=== PATIENT | female | born 2000 | race Caucasian/White ===

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

== ENCOUNTER → 2025-04-06 | Outpatient (CLI) | payer OTHER ==
--- NOTE | 2025-04-07 11:13 | XR ---
EXAMINATION TYPE: XR hand complete RT DATE OF EXAM: 04/07/2025 9:57 AM COMPARISON: None CLINICAL INDICATION: Female, 24 years old with history of [id number] RT THUMB PAIN; YCH, pain TECHNIQUE: XR hand complete RT 3 views were obtained. FINDINGS: Normal alignment of the visualized joints. No acute osseous pathology is identified. No e vidence of soft tissue swelling. No significant degeneration IMPRESSION: No acute osseous pathology. [facility], , 04/07/2025 11:11 AM
== END | disposition home or self-care (01) ==
LOC: RADXRYALE 15:33
PROVIDERS: ATTEND Student in an Organized Health Care Education/Training Program
DX: M79.644 Pain in right finger(s) (principal); G89.29 Other chronic pain